=== PATIENT | female | born 1950 | race Caucasian/White ===

== ENCOUNTER 2020-05-31 16:35 | Inpatient (IN) ==
[2020-05-31] MEDS ORDERED: Ondansetron ODT 4 MG TAB.RAPDIS SL PRN (16:45)
[2020-05-31] MEDS ORDERED: Mag Hydrox/Al Hydrox/Simeth 30 ML UDC PO PRN (16:45)
[2020-05-31] MEDS ORDERED: PROPRANOLOL HCL 80 MG PO SCH (21:00)
[2020-05-31] MEDS: Oxymetazoline Nasal SPRAY BOTTLE NS SCH (21:09)
[2020-06-01 06:50] LABS: Basophils # 0.1 K/mcL (0.0-0.2); Basophils % 1.5 %; Eosinophils # 0.8 K/mcL (0.0-0.6); Eosinophils % 8.8 %; Hematocrit 36.9 % (35.3-44.9); Hemoglobin 12.3 g/dL (11.5-15.4); Immature Granulocytes % 0.2 % (0-4); Lymphocytes # 2.4 K/mcL (0.6-4.6); Lymphocytes % 27.6 %; Mean Corpuscular HGB Conc 33.3 g/dL (31.6-35.5); Mean Corpuscular Hemoglobin 27.6 pg (28.0-33.3); Mean Corpuscular Volume 82.9 fL (83.0-100.0); Mean Platelet Volume 9.6 fL (9.4-12.4); Monocytes # 0.8 K/mcL (0.0-1.3); Monocytes % 8.8 %; Neutrophils # 4.6 K/mcL (1.6-8.9); Platelet Count 370 K/mcL (140-400); Red Blood Count 4.45 M/mcL (3.82-4.97); Red Cell Distribution Width 14.2 % (11.5-14.5); Segmented Neutrophils % 53.1 %; White Blood Count 8.7 K/mcL (4.3-11.1)
[2020-06-01 07:01] LABS: Prothrombin Time 11.3 Seconds (9.4-12.1)
[2020-06-01 07:02] LABS: Activated Partial Thrombo Time 30.4 Seconds (26.0-36.0)
[2020-06-01 07:04] LABS: eGFR For African Americans > 60 (> 60); eGFR For Non-African Americans > 60 (> 60)
[2020-06-01] MEDS: Multivit/Ca/Min/Fe/FA 1 TAB TABLET PO SCH (09:13)
[2020-06-01] MEDS: hydrOXYzine pamoate 25 MG CAPSULE PO SCH (09:13)
[2020-06-01] MEDS: amLODIPine 5 MG TABLET PO SCH (09:13)
[2020-06-01] MEDS: lisinopriL 10 MG TABLET PO SCH (09:13)
[2020-06-01] MEDS: Lactobacillus 1 EACH CAP.SPRINK PO SCH (09:14)
[2020-06-01] MEDS: CRANBERRY 400 MG PO SCH (09:14)
[2020-06-01] MEDS: Loratadine/Pseudophed (12 HR) 1 EACH TABLET PO SCH (09:21)
[2020-06-01] MEDS: Oxymetazoline Nasal SPRAY BOTTLE NS SCH ×2 (09:21→20:03)
[2020-06-01] MEDS: FISH OIL 1200 MG PO SCH (11:15)
[2020-06-01] MEDS: Cholecalciferol (D-3) 1,000 UNIT (25MCG) TABLET PO SCH (11:15)
[2020-06-02] MEDS: Loratadine/Pseudophed (12 HR) 1 EACH TABLET PO SCH (10:48)
[2020-06-02] MEDS: Lactobacillus 1 EACH CAP.SPRINK PO SCH (10:48)
[2020-06-02] MEDS: hydrOXYzine pamoate 25 MG CAPSULE PO SCH (10:48)
[2020-06-02] MEDS: Oxymetazoline Nasal SPRAY BOTTLE NS SCH (10:48)
[2020-06-02] MEDS: Cholecalciferol (D-3) 1,000 UNIT (25MCG) TABLET PO SCH (10:48)
[2020-06-02] MEDS: Multivit/Ca/Min/Fe/FA 1 TAB TABLET PO SCH (10:49)
[2020-06-02] MEDS: lisinopriL 10 MG TABLET PO SCH (10:49)
[2020-06-02] MEDS: CRANBERRY 400 MG PO SCH (10:49)
[2020-06-02] MEDS: amLODIPine 5 MG TABLET PO SCH (10:49)
[2020-06-02] MEDS: FISH OIL 1200 MG PO SCH (10:57)
[2020-06-02] MEDS ORDERED: OXYMETAZOLINE HCL NS PRN (16:18)
[2020-06-03] MEDS: Multivit/Ca/Min/Fe/FA 1 TAB TABLET PO SCH (08:14)
[2020-06-03] MEDS: Cholecalciferol (D-3) 1,000 UNIT (25MCG) TABLET PO SCH (08:14)
[2020-06-03] MEDS: Loratadine/Pseudophed (12 HR) 1 EACH TABLET PO SCH (08:14)
[2020-06-03] MEDS: amLODIPine 5 MG TABLET PO SCH (08:14)
[2020-06-03] MEDS: Lactobacillus 1 EACH CAP.SPRINK PO SCH (08:14)
[2020-06-03] MEDS: lisinopriL 10 MG TABLET PO SCH (08:14)
[2020-06-03] MEDS: hydrOXYzine pamoate 25 MG CAPSULE PO SCH (08:14)
[2020-06-03] MEDS: FISH OIL 1200 MG PO SCH (08:15)
[2020-06-03] MEDS: CRANBERRY 400 MG PO SCH (08:15)
[2020-06-03] MEDS: QUEtiapine Fumarate 25 MG TABLET PO PRN (19:59)
[2020-06-04] MEDS: FISH OIL 1200 MG PO SCH (08:00)
[2020-06-04] MEDS: Cholecalciferol (D-3) 1,000 UNIT (25MCG) TABLET PO SCH (08:00)
[2020-06-04] MEDS: lisinopriL 10 MG TABLET PO SCH (08:00)
[2020-06-04] MEDS: CRANBERRY 400 MG PO SCH (08:00)
[2020-06-04] MEDS: Lactobacillus 1 EACH CAP.SPRINK PO SCH (08:00)
[2020-06-04] MEDS: amLODIPine 5 MG TABLET PO SCH (08:00)
[2020-06-04] MEDS: Loratadine/Pseudophed (12 HR) 1 EACH TABLET PO SCH (08:00)
[2020-06-04] MEDS: Multivit/Ca/Min/Fe/FA 1 TAB TABLET PO SCH (08:00)
[2020-06-04] MEDS: hydrOXYzine pamoate 25 MG CAPSULE PO SCH (08:00)
[2020-06-04] MEDS: QUEtiapine Fumarate 25 MG TABLET PO PRN (20:02)
[2020-06-05] MEDS: Lactobacillus 1 EACH CAP.SPRINK PO SCH (09:13)
[2020-06-05] MEDS: amLODIPine 5 MG TABLET PO SCH (09:13)
[2020-06-05] MEDS: hydrOXYzine pamoate 25 MG CAPSULE PO SCH (09:14)
[2020-06-05] MEDS: Cholecalciferol (D-3) 1,000 UNIT (25MCG) TABLET PO SCH (09:14)
[2020-06-05] MEDS: Loratadine/Pseudophed (12 HR) 1 EACH TABLET PO SCH (09:14)
[2020-06-05] MEDS: lisinopriL 10 MG TABLET PO SCH (09:14)
[2020-06-05] MEDS: Multivit/Ca/Min/Fe/FA 1 TAB TABLET PO SCH (09:14)
[2020-06-05] MEDS: CRANBERRY 400 MG PO SCH (09:25)
[2020-06-05] MEDS: FISH OIL 1200 MG PO SCH (09:26)
[2020-06-06] MEDS: Lactobacillus 1 EACH CAP.SPRINK PO SCH (08:29)
[2020-06-06] MEDS: Loratadine/Pseudophed (12 HR) 1 EACH TABLET PO SCH (08:29)
[2020-06-06] MEDS: lisinopriL 10 MG TABLET PO SCH (08:29)
[2020-06-06] MEDS: Cholecalciferol (D-3) 1,000 UNIT (25MCG) TABLET PO SCH (08:29)
[2020-06-06] MEDS: amLODIPine 5 MG TABLET PO SCH (08:29)
[2020-06-06] MEDS: Multivit/Ca/Min/Fe/FA 1 TAB TABLET PO SCH (08:29)
[2020-06-06] MEDS: hydrOXYzine pamoate 25 MG CAPSULE PO SCH (08:29)
[2020-06-06] MEDS: FISH OIL 1200 MG PO SCH ×2 (08:30→08:44)
[2020-06-06] MEDS: CRANBERRY 400 MG PO SCH (08:34)
[2020-06-06] MEDS: QUEtiapine Fumarate 25 MG TABLET PO PRN (19:46)
[2020-06-07 06:26] LABS: Basophils # 0.1 K/mcL (0.0-0.2); Basophils % 1.3 %; Eosinophils # 0.8 K/mcL (0.0-0.6); Eosinophils % 9.9 %; Hematocrit 35.4 % (35.3-44.9); Hemoglobin 11.7 g/dL (11.5-15.4); Immature Granulocytes % 0.4 % (0-4); Lymphocytes # 2.6 K/mcL (0.6-4.6); Lymphocytes % 31.3 %; Mean Corpuscular HGB Conc 33.1 g/dL (31.6-35.5); Mean Corpuscular Hemoglobin 27.9 pg (28.0-33.3); Mean Corpuscular Volume 84.3 fL (83.0-100.0); Mean Platelet Volume 9.5 fL (9.4-12.4); Monocytes # 0.7 K/mcL (0.0-1.3); Monocytes % 8.7 %; Platelet Count 339 K/mcL (140-400); Red Cell Distribution Width 13.8 % (11.5-14.5); Segmented Neutrophils % 48.4 %; White Blood Count 8.2 K/mcL (4.3-11.1)
[2020-06-07 07:10] LABS: BUN/Creatinine Ratio 27 (6-26); Blood Urea Nitrogen 25 mg/dL (8-23); Calcium 9.5 mg/dL (8.6-10.3); Carbon Dioxide 27 mEq/L (23-29); Chloride 102 mEq/L (98-107); Glucose 102 mg/dL (70-105); Osmolality,Calculated 289 (280-300); Potassium 4.3 mEq/L (3.5-5.1); Sodium 137 mEq/L (136-145); eGFR For African Americans > 60 (> 60); eGFR For Non-African Americans > 60 (> 60)
[2020-06-07] MEDS: Loratadine/Pseudophed (12 HR) 1 EACH TABLET PO SCH (07:52)
[2020-06-07] MEDS: amLODIPine 5 MG TABLET PO SCH (07:52)
[2020-06-07] MEDS: Lactobacillus 1 EACH CAP.SPRINK PO SCH (07:52)
[2020-06-07] MEDS: CRANBERRY 400 MG PO SCH (07:52)
[2020-06-07] MEDS: Cholecalciferol (D-3) 1,000 UNIT (25MCG) TABLET PO SCH (07:52)
[2020-06-07] MEDS: Multivit/Ca/Min/Fe/FA 1 TAB TABLET PO SCH (07:52)
[2020-06-07] MEDS: hydrOXYzine pamoate 25 MG CAPSULE PO SCH (07:52)
[2020-06-07] MEDS: lisinopriL 10 MG TABLET PO SCH (07:52)
[2020-06-07] MEDS: FISH OIL 1200 MG PO SCH (07:53)
[2020-06-07] MEDS: QUEtiapine Fumarate 25 MG TABLET PO PRN (20:48)
[2020-06-08] MEDS: lisinopriL 10 MG TABLET PO SCH (07:35)
[2020-06-08] MEDS: amLODIPine 5 MG TABLET PO SCH (07:35)
[2020-06-08] MEDS: Multivit/Ca/Min/Fe/FA 1 TAB TABLET PO SCH (07:36)
[2020-06-08] MEDS: Cholecalciferol (D-3) 1,000 UNIT (25MCG) TABLET PO SCH (07:36)
[2020-06-08] MEDS: Lactobacillus 1 EACH CAP.SPRINK PO SCH (07:36)
[2020-06-08] MEDS: hydrOXYzine pamoate 25 MG CAPSULE PO SCH (07:36)
[2020-06-08] MEDS: FISH OIL 1200 MG PO SCH (07:37)
[2020-06-08] MEDS: CRANBERRY 400 MG PO SCH (07:50)
[2020-06-08] MEDS: Loratadine/Pseudophed (12 HR) 1 EACH TABLET PO SCH (07:50)
[2020-06-08] MEDS: QUEtiapine Fumarate 25 MG TABLET PO PRN (20:35)
[2020-06-09] MEDS: VIT D PO SCH (09:53)
[2020-06-09] MEDS: CALCIUM PO SCH (09:53)
[2020-06-09] MEDS: Multivit/Ca/Min/Fe/FA 1 TAB TABLET PO SCH (09:55)
[2020-06-09] MEDS: amLODIPine 5 MG TABLET PO SCH (09:55)
[2020-06-09] MEDS: Lactobacillus 1 EACH CAP.SPRINK PO SCH (09:55)
[2020-06-09] MEDS: Loratadine/Pseudophed (12 HR) 1 EACH TABLET PO SCH (09:55)
[2020-06-09] MEDS: FISH OIL 1200 MG PO SCH (09:55)
[2020-06-09] MEDS: CRANBERRY 400 MG PO SCH (09:55)
[2020-06-09] MEDS: hydrOXYzine pamoate 25 MG CAPSULE PO SCH (09:56)
[2020-06-09] MEDS: lisinopriL 10 MG TABLET PO SCH (09:56)
[2020-06-09] MEDS: Cholecalciferol (D-3) 1,000 UNIT (25MCG) TABLET PO SCH (09:56)
[2020-06-09] MEDS: QUEtiapine Fumarate 25 MG TABLET PO PRN (20:17)
[2020-06-10] MEDS: CALCIUM PO SCH (09:01)
[2020-06-10] MEDS: VIT D PO SCH (09:01)
[2020-06-10] MEDS: CRANBERRY 400 MG PO SCH (09:01)
[2020-06-10] MEDS: Multivit/Ca/Min/Fe/FA 1 TAB TABLET PO SCH (09:02)
[2020-06-10] MEDS: FISH OIL 1200 MG PO SCH (09:02)
[2020-06-10] MEDS: amLODIPine 5 MG TABLET PO SCH (09:03)
[2020-06-10] MEDS: hydrOXYzine pamoate 25 MG CAPSULE PO SCH (09:03)
[2020-06-10] MEDS: lisinopriL 10 MG TABLET PO SCH (09:03)
[2020-06-10] MEDS: Cholecalciferol (D-3) 1,000 UNIT (25MCG) TABLET PO SCH (09:04)
[2020-06-10] MEDS: Lactobacillus 1 EACH CAP.SPRINK PO SCH (09:04)
[2020-06-10] MEDS: Loratadine/Pseudophed (12 HR) 1 EACH TABLET PO SCH (09:05)
[2020-06-10] MEDS: QUEtiapine Fumarate 25 MG TABLET PO PRN (21:16)
[2020-06-11] MEDS: VIT D PO SCH (08:42)
[2020-06-11] MEDS: CALCIUM PO SCH (08:42)
[2020-06-11] MEDS: FISH OIL 1200 MG PO SCH (08:42)
[2020-06-11] MEDS: CRANBERRY 400 MG PO SCH (08:42)
[2020-06-11] MEDS: Lactobacillus 1 EACH CAP.SPRINK PO SCH (08:50)
[2020-06-11] MEDS: lisinopriL 10 MG TABLET PO SCH (08:50)
[2020-06-11] MEDS: amLODIPine 5 MG TABLET PO SCH (08:50)
[2020-06-11] MEDS: Cholecalciferol (D-3) 1,000 UNIT (25MCG) TABLET PO SCH (08:50)
[2020-06-11] MEDS: Multivit/Ca/Min/Fe/FA 1 TAB TABLET PO SCH (08:50)
[2020-06-11] MEDS: Loratadine/Pseudophed (12 HR) 1 EACH TABLET PO SCH (08:50)
[2020-06-11] MEDS: hydrOXYzine pamoate 25 MG CAPSULE PO SCH (08:50)
[2020-06-11] MEDS: QUEtiapine Fumarate 25 MG TABLET PO PRN (23:08)
[2020-06-12 07:24] LABS: Basophils # 0.1 K/mcL (0.0-0.2); Basophils % 1.2 %; Eosinophils # 0.8 K/mcL (0.0-0.6); Eosinophils % 8.4 %; Hematocrit 35.3 % (35.3-44.9); Hemoglobin 11.7 g/dL (11.5-15.4); Immature Granulocytes % 0.4 % (0-4); Lymphocytes # 2.5 K/mcL (0.6-4.6); Mean Corpuscular HGB Conc 33.1 g/dL (31.6-35.5); Mean Corpuscular Hemoglobin 28.1 pg (28.0-33.3); Mean Corpuscular Volume 84.7 fL (83.0-100.0); Monocytes # 0.8 K/mcL (0.0-1.3); Monocytes % 8.3 %; Platelet Count 357 K/mcL (140-400); Red Blood Count 4.17 M/mcL (3.82-4.97); Red Cell Distribution Width 13.7 % (11.5-14.5); Segmented Neutrophils % 54.7 %; White Blood Count 9.1 K/mcL (4.3-11.1)
[2020-06-12 07:46] LABS: BUN/Creatinine Ratio 26 (6-26); Blood Urea Nitrogen 23 mg/dL (8-23); Calcium 9.5 mg/dL (8.6-10.3); Carbon Dioxide 28 mEq/L (23-29); Chloride 103 mEq/L (98-107); Glucose 109 mg/dL (70-105); Osmolality,Calculated 290 (280-300); Potassium 4.3 mEq/L (3.5-5.1); Sodium 138 mEq/L (136-145); eGFR For African Americans > 60 (> 60); eGFR For Non-African Americans > 60 (> 60)
[2020-06-12] MEDS: CALCIUM PO SCH (08:15)
[2020-06-12] MEDS: Loratadine/Pseudophed (12 HR) 1 EACH TABLET PO SCH (08:15)
[2020-06-12] MEDS: FISH OIL 1200 MG PO SCH (08:15)
[2020-06-12] MEDS: CRANBERRY 400 MG PO SCH (08:15)
[2020-06-12] MEDS: Multivit/Ca/Min/Fe/FA 1 TAB TABLET PO SCH (08:15)
[2020-06-12] MEDS: Cholecalciferol (D-3) 1,000 UNIT (25MCG) TABLET PO SCH (08:15)
[2020-06-12] MEDS: Lactobacillus 1 EACH CAP.SPRINK PO SCH (08:15)
[2020-06-12] MEDS: VIT D PO SCH (08:15)
[2020-06-12] MEDS: amLODIPine 5 MG TABLET PO SCH (08:15)
[2020-06-12] MEDS: lisinopriL 10 MG TABLET PO SCH (08:16)
[2020-06-12] MEDS: hydrOXYzine pamoate 25 MG CAPSULE PO SCH (08:16)
[2020-06-12] MEDS: QUEtiapine Fumarate 25 MG TABLET PO PRN (23:13)
[2020-06-13] MEDS: Multivit/Ca/Min/Fe/FA 1 TAB TABLET PO SCH (08:20)
[2020-06-13] MEDS: Loratadine/Pseudophed (12 HR) 1 EACH TABLET PO SCH (08:20)
[2020-06-13] MEDS: amLODIPine 5 MG TABLET PO SCH (08:20)
[2020-06-13] MEDS: lisinopriL 10 MG TABLET PO SCH (08:21)
[2020-06-13] MEDS: FISH OIL 1200 MG PO SCH (08:21)
[2020-06-13] MEDS: Lactobacillus 1 EACH CAP.SPRINK PO SCH (08:21)
[2020-06-13] MEDS: Cholecalciferol (D-3) 1,000 UNIT (25MCG) TABLET PO SCH (08:21)
[2020-06-13] MEDS: VIT D PO SCH (08:21)
[2020-06-13] MEDS: hydrOXYzine pamoate 25 MG CAPSULE PO SCH (08:21)
[2020-06-13] MEDS: CALCIUM PO SCH (08:21)
[2020-06-13] MEDS: CRANBERRY 400 MG PO SCH (08:22)
[2020-06-13] MEDS ORDERED: QUEtiapine Fumarate 25 MG TABLET PO PRN (21:16)
[2020-06-14 07:17] VITALS: BP 123/80
[2020-06-14] MEDS: Lactobacillus 1 EACH CAP.SPRINK PO SCH (09:42)
[2020-06-14] MEDS: amLODIPine 5 MG TABLET PO SCH (09:42)
[2020-06-14] MEDS: Multivit/Ca/Min/Fe/FA 1 TAB TABLET PO SCH (09:42)
[2020-06-14] MEDS: hydrOXYzine pamoate 25 MG CAPSULE PO SCH (09:42)
[2020-06-14] MEDS: Cholecalciferol (D-3) 1,000 UNIT (25MCG) TABLET PO SCH (09:42)
[2020-06-14] MEDS: Loratadine/Pseudophed (12 HR) 1 EACH TABLET PO SCH (09:43)
[2020-06-14] MEDS: lisinopriL 10 MG TABLET PO SCH (09:43)
[2020-06-14] MEDS: FISH OIL 1200 MG PO SCH (09:44)
[2020-06-14] MEDS: CRANBERRY 400 MG PO SCH (09:44)
[2020-06-14] MEDS: VIT D PO SCH (09:44)
[2020-06-14] MEDS: CALCIUM PO SCH (09:44)
== END 2020-06-14 11:08 | disposition home health service (06) | DRG 57 ==
LOC: INPPIK 19:18
PROVIDERS: ADMIT Family Medicine; ATTEND Family Medicine